=== PATIENT | male | born 1985 | race Caucasian/White ===

== ENCOUNTER 2017-08-22 21:26 | Emergency (ER) | payer OTHER ==
[~2017-08-22] VITALS: Ht 175.3 cm; Wt 158.8 kg
[2017-08-22 21:41] VITALS: Ht 175.3 cm; Wt 158.8 kg
[2017-08-23 00:02] VITALS: BP 128/69
== END 2017-08-23 00:02 | disposition home or self-care (01) ==
LOC: ED 21:26
DX: J11.1 Influenza due to unidentified influenza virus with other respiratory manifestations (principal); J98.01 Acute bronchospasm
CPT/HCPCS: 87804; J7512; J7613; J7644